=== PATIENT | male | born 1995 | race Caucasian/White ===

== ENCOUNTER 2025-04-10 03:13 | Emergency (ER) | payer OTHER ==
[~2025-04-10] VITALS: Ht 170.2 cm; Wt 127.3 kg
[~2025-04-10 03:13] MED LIST: ONDA-243 PO; OXYC-138 PO
[2025-04-10] MEDS: ketorolac trometh 15mg/ml vial 15 MG/ML ML IV ONE ×2 (03:48→06:51)
--- NOTE | 2025-04-10 03:54 | Physician Documentation ---
History of Present Illness ~ Chief Complaint: Flank Pain Stated Complaint: KIDNEY STONE Time Seen by MD: 03:38 OK to notify your PCP?: Yes Source: patient, RN/MD, RN notes reviewed, old records Mode of Arrival: POV Exam Limitations: no limitations HPI This patient has a history of kidney stones in the past and feels he is having a kidney stone once again. He is having severe pain with and without urination it is radiating to his groin in the left flank area he has been vomiting because the pain so intense. He denies any fevers or chills. The patient states his s ymptoms started around 12 noon and just got progressively worse. He never had back pain was always left groin. Medication Reconciliation Allergies: Coded Allergies: No Known Allergies (Unverified , 04/10/25) Scheduled Tadalafil* (Cialis*), 1 TAB PO DAILY Scheduled PRN ONDANSETRON ODT 4mg tablet (Ondansetron Odt), 1 TABLET PO Q6H PRN for nausea/vomiting Oxycodone HCl/Acetaminophen (Endocet 10-325 mg Tablet), 1 TAB PO Q8H PRN for pain Oxycodone HCl/Acetaminophen (Percocet 5-325 mg Tablet), 1 TAB PO Q12H PRN PRN for pain Past Medical History Past Medical History: No Pertinent History Past Surgical History: no surgical history Lives In: Home Review of Systems All Other Systems at this time: Reviewed and Negative Physical Exam Vital Signs: RN Vital Signs have been reviewed: Yes, Temperature: 97.6, Source: Temporal, Heart Rate: 84, Respiratory Rate: 22, BP: 163/99, Pulse Oximetry: 95, Weight: 127.300 Physical Exam General: The patient is well developed, well nourished, nontoxic appearing and is in moderate acute distress. Can not find a comfortable position Skin: [place], warm and dry with no rashes. HEENT: Head was normocephalic and atraumatic. Eyes - pupils equal, round, reactive to light and accommodation. Extraocular movements were intact. Conjunctivae were nonicteric. The mouth and oropharynx were clear with moist mucous membranes. There were no pharyngeal exudates or erythema. Neck: Supple and nontender. There was no jugular venous distention, lymphadenopathy, thyromegaly or masses. Chest: Clear to auscultation bilaterally without wheezes, rales or rhonchi. No accessory muscle use. No dullness to percussion. Heart: Rate regular and rhythmic. S1, S2. No murmurs. Palpation of the chest wall was normal. No rubs or thrills. Abdomen: Soft, nontender and nondistended. Positive bowel sounds. No guarding or rebound. No hepatosplenomegaly Extremities: No cyanosis, clubbing or edema. The patient moves all extremities. Pulses were equal and symmetric. Neurologic: Motor sensory grossly intact Psychologic: The patient was oriented to person, place and time. The patient demonstrated appropriate judgement and insight. Progress Results/Orders Reviewed/noted all lab results: Yes Results/Orders Orders - OWEN BECKER MD Ct Abdomen Pelvis (04/10/25 04:35) Completed Orders - OWEN BECKER MD Cbc/Diff (04/10/25 03:38) Urinalysis, Cult If Indicated (04/10/25 03:38) Normal Saline 1000ml (0.9% Sodium Chlori (04/10/25 03:40) BMP (04/10/25 03:38) Hydromorphone 1 Mg/Ml/Pf (Dilaudid Inj.) (04/10/25 03:40) Ketorolac Trometh 15mg/Ml Vial (Toradol (04/10/25 03:40) Sildenafil Citrate 20mg Tablet (Revatio (04/10/25 08:00) Sildenafil Citrate 20mg Tablet (Revatio (04/10/25 04:08) Ct Abdomen Pelvis (04/10/25 04:35) Hydromorphone 1 Mg/Ml/Pf (Dilaudid Inj.) (04/10/25 05:25) Ketorolac Trometh 15mg/Ml Vial (Toradol (04/10/25 06:45) Morphine 2mg/Ml Inj. (Morphine Inj.) (04/10/25 06:45) Vital Signs 04/10/25 04/10/25 04/10/25 04/10/25 03:30 03:48 03:48 04:28 Temp 97.6 Pulse 84 Resp 22 16 16 18 B/P (MAP) 163/99 Pulse Ox 95 04/10/25 04/10/25 04/10/25 04/10/25 04:34 04:34 04:43 05:57 Temp 97.6 Pulse 94 76 Resp 18 18 16 18 B/P (MAP) 140/92 (108) 123/61 (81) Pulse Ox 99 93 O2 Flow Rate 0 04/10/25 04/10/25 04/10/25 06:23 06:23 06:52 Pulse 99 Resp 18 18 18 B/P (MAP) 104/45 (64) Pulse Ox 98 O2 Flow Rate 0 Laboratory Tests Test 04/10/25 03:59 04/10/25 04:07 White Blood Count 15.1 H Red Blood Count 5.05 Hemoglobin 15.5 Hematocrit 43.6 Mean Corpuscular Volume 86.4 Mean Corpuscular Hemoglobin 30.6 Mean Corpuscular Hemoglobin Concent 35.4 Red Cell Distribution Width 12.9 Platelet Count 292 Mean Platelet Volume 8.6 Neutrophils (%) (Auto) 79.2 H Lymphocytes (%) (Auto) 15.4 L Monocytes (%) (Auto) 4.6 Eosinophils (%) (Auto) 0.2 Basophils (%) (Auto) 0.6 Neutrophils # (Auto) 12.0 H Lymphocytes # (Auto) 2.3 Monocytes # (Auto) 0.7 Eosinophils # (Auto) 0.0 Basophils # (Auto) 0.1 CBC Comment Sodium Level 139 Potassium Level 3.3 L Chloride Level 103 Carbon Dioxide Level 23.6 L Anion Gap 12 Blood Urea Nitrogen 14 Creatinine 0.96 Estimated GFR/1.73 m2 > 90 BUN/Creatinine Ratio 14.6 Glucose Level 157 H Calcium Level 8.9 Albumin 3.9 Chemistry Comments Urine Specimen Description Non-specified Urine Color Yellow Urine Clarity Clear Urine pH 6.0 Urine Specific [place] 1.025 Urine Protein Negative Urine Glucose (UA) Negative Urine Ketones Negative Urine Occult Blood Negative Urine Nitrite Negative Urine Bilirubin Negative Urine Urobilinogen 0.2 Urine Leukocyte Esterase Negative Urine Culture Indicated Not ind Volume Urine Centrifuged 7 ml Urine Comment Low volume Re-Evaluation Re-Evaluation : Re-Evaluation: Improved Progress Patient was seen and examined. Patient is given reassurance. Patient was in quite significant amounts of pain. He received 2 L of fluids. In addition to that he received Viagra, Toradol, Dilaudid 1 mg x 2. His pain returned so he received the 2nd dose of narcotics. He seems to be a bit more comfortable. However he says the pain still cramping comes and goes. He has a small 2 mm stone with mild hydro. He was written prescriptions and discharged home for renal colic Continuous ekg monitor interpretation shows normal sinus rhythm heart rate 90s, no ectopy, normal, my interpretation Pulse oximetry monitor interpretation shows normal oxygenation at 95% room air, normal, my interpretation. EKG/XRAY/CT/US/VASC/MRI CT : Interpreted By: both CT: abdomen/pelvis With Contrast?: No Impression Exam: CT CT ABDOMEN PELVIS History: ABD PAIN LT FLANK PAIN Comparison Study: CT CT ABDOMEN PELVIS on DOS: 02/11/24 TECHNIQUE: Multidetector CT of the abdomen and pelvis was performed from lung bases to ischial tuberosities. Imaging was performed without IV contrast using axial images. Coronal and sagittal reformats were obtained from the axial data set by the technologist. Radiation Dose Information: CT Dose: CTDI volume is 36.9 mGy. Dose-length product is 2064.5 mGy*cm FINDINGS: Evaluation of solid organs is limited due to lack of intravenous contrast use. Findings: Lung Bases: No acute or significant lung base finding. Normal heart size. No pleural or pericardial effusion. Liver: The liver is normal in size. No focal lesions. Gallbladder and Biliary Tree: Unremarkable Spleen: Unremarkable Pancreas: The pancreas is grossly normal in appearance. Adrenal Glands: Unremarkable Kidneys: There is mild left hydroureteronephrosis likely due to 2 mm calculus in the left posterolateral urinary bladder. The right kidney is unremarkable. No right ureteral calculi. GI Tract: There is a hiatal hernia. Small bowel and colon are normal in caliber and distribution. The appendix is visualized and is normal. Peritoneal cavity: No pneumoperitoneum. No ascites. Lymphadenopathy: No mesenteric, retroperitoneal or periportal lymphadenopathy. Abdominal Wall and Mesentery: Unremarkable. Vasculature: The visualized abdominal aorta is normal in size and caliber. Evaluation of abdominal and pelvic vessels is limited due to lack of intravenous contrast. Pelvic Organs: Unremarkable Urinary Bladder: 2 mm urinary bladder stone as described above. Musculoskeletal: No aggressive focal bony lesions, acute fractures or dislocation. Soft tissues: Unremarkable IMPRESSION: 1. Mild left hydroureteronephrosis due to 2 mm calculus located in the left posterolateral side of the urinary bladder. Radiation optimization: All CT scans at this facility use at least one of these dose optimization techniques: automated exposure control mA and/or kV adju stment per patient size (includes targeted exams where dose is matched to clinical indication) or iterative reconstruction. Medical Decision Making Additional information obtaine: old records Findings Like groin pain rule out GI symptoms, hernia, renal colic, aneurysm, perforated viscus were was all considered Urinary Diff Dx:Considerations: Include: AAA, Aortic dissection, Appendicitis, Appendicitis train, Cholelithiasis, Choleangitis, Cholecystitis, DJD, Hepatitis, Musculoskeletal pain, Pancreatitis, Postoperative Comp., Prostatitis, Pyelonephritis, Renal failure, Renal infarction, Strain, Urolithiasis, Ureth ritis, Urinary retention, UTI, Other Genital Diff Dx:Considerations: Include: Other Departure Disposition: 01 HOME / SELF CARE / HOMELESS Impression: Primary Impression: Renal colic Condition: Improved Discharge Instructions: Kidney Stones, Renal Colic Referrals: NO PRIMARY CARE PROVIDER (PCP) Prescriptions Oxycodone HCl/Acetaminophen (Percocet 5-325 mg Tablet) 5 Mg-325 Mg Tablet 1 TAB PO Q12H PRN PRN for pain for 6 Days, #12 TAB 0 Refills Prov: OWEN BECKER MD 04/10/25 Tadalafil* (Cialis*) 5 Mg Tablet 1 TAB PO DAILY for renal colic for 30 Days, #30 TAB Prov: OWEN BCEKER MD 04/10/25 Education Educated: Patient Educated regarding: diagnosis, need for follow up, other Signature Scribe Signature: - Attestation: The note accurately reflects work and decisions made by me.Owen Becker MD 04/10/25 03:55 OWEN BECKER MD Apr 10, 2025 03:54
[2025-04-10] MEDS: normal saline 1000ML IV soln IVB ONE (03:59)
[2025-04-10 04:19] LABS: LEUKOCYTE ESTERASE ,URINE NEGATIVE (Neg); NITRITES, URINE NEGATIVE (Neg); OCCULT BLOOD,URINE NEGATIVE (Neg)
[2025-04-10 04:20] LABS: UA COLLECTION TYPE NON-SPECIFIED
[2025-04-10 04:25] LABS: CREATININE 0.96 MG/DL (0.60-1.10); TOTAL CARBON DIOXIDE 23.6 MMOL/L (24-32); eCRCL 106 ML/MIN; eGFR > 90 ML/MIN
[2025-04-10 04:27] LABS: MEAN PLATELET VOLUME 8.6 FL (7.4-10.4); RED CELL DISTRIBUTION WIDTH 12.9 % (11.5-14.5)
--- NOTE | 2025-04-10 04:57 | RADIOLOGY REPORT ---
Exam: CT CT ABDOMEN PELVIS History: ABD PAIN LT FLANK PAIN Comparison Study: CT CT ABDOMEN PELVIS on DOS: 02/11/24 TECHNIQUE: Multidetector CT of the abdomen and pelvis was performed from lung bases to ischial tuberosities. Imaging was performed without IV contrast using axial images. Coronal and sagittal reformats were obtained from the axial data set by the technologist. Radiation Dose Information: CT Dose: CTDI volume is 36.9 mGy. Dose-length product is 2064.5 mGy*cm FINDINGS: Evaluation of solid organs is limited due to lack of intravenous contrast use. Findings: Lung Bases: No acute or significant lung base finding. Normal heart size. No pleural or pericardial effusion. Liver: The liver is normal in size. No focal lesions. Gallbladder and Biliary Tree: Unremarkable Spleen: Unremarkable Pancreas: The pancreas is grossly normal in appearance. Adrenal Glands: Unremarkable Kidneys: There is mild left hydroureteronephrosis likely due to 2 mm calculus in the left posterolateral urinary bladder. The right kidney is unremarkable. No right ureteral calculi. GI Tract: There is a hiatal hernia. Small bowel and colon are normal in caliber and distribution. The appendix is visualized and is normal. Peritoneal cavity: No pneumoperitoneum. No ascites. Lymphadenopathy: No mesenteric, retroperitoneal or periportal lymphadenopathy. Abdominal Wall and Mesentery: Unremarkable. Vasculature: The visualized abdominal aorta is normal in size and caliber. Evaluation of abdominal and pelvic vessels is limited due to lack of intravenous contrast. Pelvic Organs: Unremarkable Urinary Bladder: 2 mm urinary bladder stone as described above. Musculoskeletal: No aggressive focal bony lesions, acute fractures or dislocation. Soft tissues: Unremarkable IMPRESSION: 1. Mild left hydroureteronephrosis due to 2 mm calculus located in the left posterolateral side of the urinary bladder. Radiation optimization: All CT scans at this facility use at least one of these dose optimization techniques: automated exposure control mA and/or kV adjustment per patient size (includes targeted exams where dose is matched to clinical indication) or iterative reconstruction.
[2025-04-10 05:57] VITALS: TEMP 97.6
[2025-04-10 06:23] VITALS: BP 104/45; PULSE 99; O2SAT 98
[2025-04-10] MEDS ORDERED: TADA5TAB2 PO (06:37)
[2025-04-10] MEDS ORDERED: OXYC-145 PO (06:37)
[2025-04-10 06:52] VITALS: RESP 18
== END 2025-04-10 07:02 | disposition home or self-care (01) ==
LOC: ER 03:14
DX: N23 Unspecified renal colic (principal); Z87.442 Personal history of urinary calculi; Z79.899 Other long term (current) drug therapy
CPT/HCPCS: 36415; 74176; 80048; 81003; 85025; 96361; 96374; 96375; 96376; 99285; A6258; J1171; J1885; J2270; J7030